=== PATIENT | female | born 1925 | race Caucasian/White ===

== ENCOUNTER 2016-09-05 18:02 | Inpatient (IN) | payer MEDICARE, MEDICAID ==
[~2016-09-05] VITALS: Ht 152.4 cm; Wt 55.0 kg
[~2016-09-05 18:02] MED LIST: ANTI1CAP PO; ASPI-650 PO; CARDIA; CELE50CA PO; DILT240C9 PO; GABA100C PO; MULT-709 PO; OMEP20CA9 PO; OXYC5CAP4 PO; PRED10TA PO; PRED5TAB PO; ROSU5TAB PO; SENN1TAB7 PO; TRAM50TA2 PO
[2016-09-05] MEDS ORDERED: ONDANSETRON 2MG/ML, 2ML IVPush ONE (21:30)
[2016-09-05] MEDS ORDERED: MORPHINE SULFATE 4 MG/ML, 1ML IVPush ONE (21:30)
[2016-09-05] MEDS ORDERED: ONDANSETRON 2MG/ML, 2ML ONE (21:38)
[2016-09-05] MEDS ORDERED: MORPHINE SULFATE 4 MG/ML, 1ML ONE (21:38)
[2016-09-05] MEDS: SODIUM CHLORIDE FLUSH 3ML SYRINGE IVF SCH (22:32)
[2016-09-05] MEDS ORDERED: LORA0.5T PO (22:45)
[2016-09-05] MEDS ORDERED: CELE200C PO (22:45)
[2016-09-05] MEDS ORDERED: morphine SULFATE 10 MG/ML, 1ML IVPush PRN (23:00)
[2016-09-05] MEDS ORDERED: POLYETHYLENE GLYCOL 17 GM PACKET PO PRN (23:00)
[2016-09-05] MEDS ORDERED: ONDANSETRON 2MG/ML, 2ML IVPush PRN (23:00)
[2016-09-05] MEDS ORDERED: hydrALAzine 20 MG/ML, 1ML IVPush PRN (23:00)
[2016-09-05] MEDS ORDERED: hydrALAzine 20 MG/ML, 1ML ONE (23:02)
[2016-09-05 23:24] LABS: ASPARTATE AMINO TRANSFERASE 24 U/L (15-37); BLOOD UREA NITROGEN 15 mg/dL (7-18)
[2016-09-05 23:36] VITALS: BP 174/80
[2016-09-06] MEDS: ATORVASTATIN 20 MG TABLET PO SCH ×2 (00:27→21:00)
[2016-09-06] MEDS: DILTIAZEM 240 MG CAP.ER.24H PO SCH ×2 (00:27→21:00)
[2016-09-06] MEDS: LORazepam 0.5MG TABLET PO SCH ×2 (00:28→21:00)
[2016-09-06] MEDS: HEPARIN 5,000 UNITS/ML, 1ML SQ SCH ×3 (00:28→17:55)
[2016-09-06 02:07] VITALS: BP 147/67
[2016-09-06 05:57] LABS: ASPARTATE AMINO TRANSFERASE 24 U/L (15-37); BLOOD UREA NITROGEN 13 mg/dL (7-18)
[2016-09-06 07:06] VITALS: BP 139/77
[2016-09-06] MEDS: SODIUM CHLORIDE FLUSH 3ML SYRINGE IVF SCH ×2 (09:45→21:01)
[2016-09-06] MEDS: GABAPENTIN 100 MG CAPSULE PO SCH (09:47)
[2016-09-06] MEDS: SENNA/DOCUSATE TABLET PO SCH (09:47)
[2016-09-06 13:34] VITALS: BP 101/55
[2016-09-06 18:53] VITALS: BP 124/66
[2016-09-06] MEDS: ACETAMINOPHEN 325 MG TABLET PO PRN (20:59)
[2016-09-06] MEDS: BISACODYL 5 MG EC TABLET PO SCH (21:00)
[2016-09-07] MEDS: HEPARIN 5,000 UNITS/ML, 1ML SQ SCH ×3 (02:16→18:08)
[2016-09-07] MEDS: ACETAMINOPHEN 325 MG TABLET PO PRN (02:17)
[2016-09-07 02:19] VITALS: BP 119/62
[2016-09-07 05:21] LABS: BLOOD UREA NITROGEN 28 mg/dL (7-18)
[2016-09-07 07:12] VITALS: BP 107/55
[2016-09-07] MEDS: SODIUM CHLORIDE FLUSH 3ML SYRINGE IVF SCH ×2 (09:28→21:00)
[2016-09-07] MEDS: SENNA/DOCUSATE TABLET PO SCH (09:29)
[2016-09-07] MEDS: GABAPENTIN 100 MG CAPSULE PO SCH (09:29)
[2016-09-07] MEDS: POLYETHYLENE GLYCOL 17 GM PACKET PO SCH (12:30)
[2016-09-07] MEDS: HYDROcodone/APAP 5/325 TABLET PO PRN ×2 (12:30→19:38)
[2016-09-07] MEDS: BISACODYL 10 MG SUPP PR PRN (12:31)
[2016-09-07 15:26] VITALS: BP 115/66
[2016-09-07] MEDS: SODIUM CHLORIDE 0.9% 1,000 ML IV SCH (15:30)
[2016-09-07 18:37] VITALS: BP 130/63
[2016-09-07] MEDS: DILTIAZEM 240 MG CAP.ER.24H PO SCH (21:43)
[2016-09-07] MEDS: ATORVASTATIN 20 MG TABLET PO SCH (21:43)
[2016-09-07] MEDS: LORazepam 0.5MG TABLET PO SCH (21:46)
[2016-09-07] MEDS: BISACODYL 5 MG EC TABLET PO SCH (21:46)
[2016-09-08 02:24] VITALS: BP 123/62
[2016-09-08] MEDS: SODIUM CHLORIDE 0.9% 1,000 ML IV SCH ×2 (03:41→17:49)
[2016-09-08] MEDS: HEPARIN 5,000 UNITS/ML, 1ML SQ SCH ×3 (03:43→17:50)
[2016-09-08 05:22] LABS: BLOOD UREA NITROGEN 22 mg/dL (7-18)
[2016-09-08 06:55] VITALS: BP 129/64
[2016-09-08] MEDS: POLYETHYLENE GLYCOL 17 GM PACKET PO SCH (08:39)
[2016-09-08] MEDS: SODIUM CHLORIDE FLUSH 3ML SYRINGE IVF SCH ×2 (08:40→20:57)
[2016-09-08] MEDS: SENNA/DOCUSATE TABLET PO SCH (08:40)
[2016-09-08] MEDS: GABAPENTIN 100 MG CAPSULE PO SCH (08:40)
[2016-09-08] MEDS: HYDROcodone/APAP 5/325 TABLET PO PRN (11:27)
[2016-09-08 13:55] VITALS: BP 133/72
[2016-09-08 19:50] VITALS: BP 145/74
[2016-09-08] MEDS: DILTIAZEM 240 MG CAP.ER.24H PO SCH (21:00)
[2016-09-08] MEDS: ATORVASTATIN 20 MG TABLET PO SCH (21:00)
[2016-09-08] MEDS: LORazepam 0.5MG TABLET PO SCH (21:00)
[2016-09-08] MEDS: BISACODYL 5 MG EC TABLET PO SCH (21:00)
[2016-09-09 01:30] VITALS: BP 137/65
[2016-09-09] MEDS: HEPARIN 5,000 UNITS/ML, 1ML SQ SCH ×3 (02:31→18:19)
[2016-09-09] MEDS: SODIUM CHLORIDE 0.9% 1,000 ML IV SCH (06:00)
[2016-09-09 06:51] VITALS: BP 131/65
[2016-09-09] MEDS: HYDROcodone/APAP 5/325 TABLET PO PRN ×3 (07:56→18:19)
[2016-09-09] MEDS: POLYETHYLENE GLYCOL 17 GM PACKET PO SCH (08:33)
[2016-09-09] MEDS: SENNA/DOCUSATE TABLET PO SCH (08:33)
[2016-09-09] MEDS: GABAPENTIN 100 MG CAPSULE PO SCH (08:33)
[2016-09-09] MEDS: SODIUM CHLORIDE FLUSH 3ML SYRINGE IVF SCH (08:34)
[2016-09-09] MEDS: BISACODYL 10 MG SUPP PR PRN (13:21)
[2016-09-09 13:36] VITALS: BP 127/60
[2016-09-09] MEDS ORDERED: SENN1TAB7 PO (14:48)
[2016-09-09] MEDS ORDERED: HYDR-3240 PO (14:48)
[2016-09-09] MEDS ORDERED: POLY17PO5 PO (14:48)
== END 2016-09-09 18:35 | DRG 536 ==
LOC: ED 22:18 → EDIP 22:19 → ED 22:48 → 4NOR 23:25
PROVIDERS: ADMIT Internal Medicine; ATTEND Internal Medicine
DX: S32.512A Fracture of superior rim of left pubis, initial encounter for closed fracture (principal); E87.1 Hypo-osmolality and hyponatremia; E87.0 Hyperosmolality and hypernatremia; I47.1 Supraventricular tachycardia; I16.0 Hypertensive urgency; M19.90 Unspecified osteoarthritis, unspecified site; M41.9 Scoliosis, unspecified; E78.5 Hyperlipidemia, unspecified; F03.90 Unspecified dementia, unspecified severity, without behavioral disturbance, psychotic disturbance, mood disturbance, and anxiety; K59.09 Other constipation; G62.9 Polyneuropathy, unspecified; Z96.653 Presence of artificial knee joint, bilateral; Z66 Do not resuscitate; Z86.73 Personal history of transient ischemic attack (TIA), and cerebral infarction without residual deficits; Z85.038 Personal history of other malignant neoplasm of large intestine; Z88.5 Allergy status to narcotic agent; Z88.0 Allergy status to penicillin; Z72.89 Other problems related to lifestyle; W18.39XA Other fall on same level, initial encounter; Y93.89 Activity, other specified; Y92.098 Other place in other non-institutional residence as the place of occurrence of the external cause; Y99.8 Other external cause status; Z87.01 Personal history of pneumonia (recurrent); I10 Essential (primary) hypertension; S32.592A Other specified fracture of left pubis, initial encounter for closed fracture; I09.9 Rheumatic heart disease, unspecified
CPT/HCPCS: 36415; 72192; 80048; 80053; 81003; 85025; 96374; 96375; J1644; J2405; J0360; J2270; J7030

== ENCOUNTER → 2016-10-22 | Outpatient (CLI) | payer MEDICARE, MEDICAID ==
[~2016-10-22] MED LIST changes: +CELE200C PO; +HYDR-3240 PO; +LORA0.5T PO; +POLY17PO5 PO
== END | disposition home or self-care (01) ==
LOC: CFH 09:48
PROVIDERS: ATTEND Family Medicine
DX: S32.82XS Multiple fractures of pelvis without disruption of pelvic ring, sequela (principal); X58.XXXS Exposure to other specified factors, sequela
CPT/HCPCS: 72190